=== PATIENT | male | born 1995 | race Caucasian/White ===

== ENCOUNTER 2020-10-16 11:25 | Observation (INO) ==
--- OUTSIDE RECORDS SUMMARY | 2020-10-16 11:27 | External Medical Summary | Continuity of Care Document ---
:1995 Author Name Pati Ferrell Address Unavailable Unavailable , Care Team Providers Name Role Phone Jericho MOTT Unavailable [email or web address] Unavailable Unavailable Unavailable Unavailable Assessments Assessed Problems:Tick bite Problems Tick bite (919.4) (W57.XXXA) Erectile dysfunction (607.84) (N52.9) Abnormal weight gain (783.1) (R63.5) Allergies and Adverse Reactions No Known Drug Allergies (Allergy) Medications Doxycycline Monohydrate 100 MG Oral Capsule; TAKE 2 TA BLET ONCE DAILY PANTERA Echavarria Tia Start: 27-Sep-2016 Quantity: 2 Refills: 0 Procedures Procedures not documented Immunizations Hepatitis B On: 1995 Hepatitis B On: 1995 IPV On: 1997 HIB On: 1997 DTaP On: 1997 IPV On: 1997 HIB On: 1997 DTaP On: 1997 Hepatitis B On: 1997 DTaP On: 1997 IPV On: 09-Jan-1998 HIB On: 09-Jan-1998 Varicella On: 09-Jan-1998 MMR On: 09-Jan-1998 DTaP On: 07-Jul-1998 IPV On: 20-Jan-2002 0:00 DTaP On: 20-Jan-2002 0:00 MMR On: 20-Jan-2002 0:00 HIB On: 08-Jul-2007 Tdap On: 15-Jan-2008 Meningo (Menactra) On: 07-Mar-2009 Menactra Intramuscular Injectable On: 04-Feb-2014 16:02 Lot #: [id number], SANOFI PASTEUR Family History Unknown Family Member Family history of Colon Cancer (V16.0) Status: Active C omments: Family History Family history of Coronary Artery Disease Status: Active Comments: Family History (V17.49) Mother No pertinent family history in first degree relatives (V49.8 9) Status: Active (Z78.9) Father No pertinent family history in first degree relatives (V49.8 9) Status: Active (Z78.9) Social History - Smoking Status Never smoked tobacco Interventions Medication ChangesDoxycycline Monohydrate 100 MG Oral Capsule - Start Plan of Treatment Planned Observations Planned Goals not documented Results No Known Results Results not documented Encounters Appointment; Cathy Echavarria PA-C 27-Sep-2016 11:30 Encounter Diagnosis: Problem not documented
--- OUTSIDE RECORDS SUMMARY | 2020-10-16 11:28 | External Medical Summary | Continuity of Care Document ---
:1995 Author Name Pati Ferrell Address Unavailable Unavailable , Care Team Providers Name Role Phone Jericho MOTT Unavailable [email or web address] Unavailable Unavailable Unavailable Unavailable Unavailable Assessments Assessed Problems:Tick bite Problems Abnormal weight gain (783.1) (R63.5) Erectile dysfunction (607.84) (N52.9) Tick bite (919.4) (W57.XXXA) Allergies and Adverse Reactions No Known Drug Allergies (Allergy) Medications Doxycycline Monohydrate 100 MG Oral Capsule; TAKE 2 TA BLET ONCE DAILY PANTERA Echavarria Tia Start: 27-Sep-2016 Quantity: 2 Refills: 0 Procedures Procedures not documented Immunizations Hepatitis B On: 1995 Hepatitis B On: 1997 IPV On: 1997 DTaP On: 1997 HIB On: 1997 IPV On: 1997 DTaP On: 1997 HIB On: 1997 Hepatitis B On: 1997 DTaP On: 1997 IPV On: 09-Jan-1998 HIB On: 09-Jan-1998 Varicella On: 09-Jan-1998 MMR On: 09-Jan-1998 DTaP On: 07-Jul-1998 IPV On: 20-Jan-2002 0:00 DTaP On: 20-Jan-2002 0:00 MMR On: 20-Jan-2002 0:00 HIB On: 08-Jul-2007 Tdap On: 15-Jan-2008 Meningo (Menactra) On: 07-Mar-2009 Menactra Intramuscular Injectable On: 04-Feb-2014 16:02 Lot #: [id number], SANOFI PASTEUR Family History Unknown Family Member [...]
[2020-10-16 12:34] LABS: Basophils # (auto) 0.01 K/uL (0-0.2); Basophils % (auto) 0.1 %; Eosinophils # (auto) 0.01 K/uL (0-0.5); Eosinophils % (auto) 0.1 %; Hematocrit (blood only) 44.8 % (42-52); Hemoglobin 16.2 g/dL (14.0-18.0); Immature Granulocytes # (auto) 0.04 K/uL (0.00-0.02); Immature Granulocytes % (auto) 0.2 %; Lymphocytes # (auto) 0.77 K/uL (1.2-3.4); Lymphocytes % (auto) 4.6 %; Mean Corpuscular Hemoglobin 30.9 pg (25-34); Mean Corpuscular Hgb Conc 36.2 g/dL (32-36); Mean Corpuscular Volume 85.5 fL (80-100); Mean Platelet Volume 10.8 fL (7.4-10.4); Monocytes # (auto) 1.09 K/uL (0.11-0.59); Monocytes % (auto) 6.4 %; Neutrophils % (auto) 88.6 %; Platelet Count 323 K/uL (130-400); RDW Standard Deviation 40.7 fL (36.4-46.3); Red Blood Count 5.24 M/uL (4.7-6.1); White Blood Count 16.92 K/uL (4.8-10.8)
[2020-10-16 12:35] LABS: iSTAT Creatinine 1.1 mg/dl (0.6-1.3); iSTAT Hemoglobin 16.3 g/dl (14.0-18.0); iSTAT Ionized Calcium 1.24 mmol/l (1.12-1.32); iSTAT Potassium 3.7 mmol/L (3.3-5.0)
[2020-10-16 12:36] LABS: Appearance Urine Clear (Clear); Bilirubin Urine Negative (Negative); Blood Urine Negative (Negative); Color Urine Yellow; Glucose Urine UA Negative (Negative); Ketones Urine 3+ (Negative); Leukocyte Esterase Urine Negative (Negative); Nitrite Urine Negative (Negative); Protein Urine Negative (Negative); Specific Gravity Urine 1.025 (1.000-1.030); Urobilinogen Urine Negative (Negative); pH Urine 6.5 (4.5-7.5)
[2020-10-16] MEDS ORDERED: OPTIRAY 320 100ml IV ONE (12:47)
--- NOTE | 2020-10-16 12:49 | Emergency Department Note ---
Impression & Plan Acute appendicitis, Abdominal pain, Leukocytosis ED Provider Note NAME: DAMIÁN ARIAS AGE: 25 SEX: M : 1995 ARRIVES VIA: Walk-In INFORMANT: Patient ED PROVIDER(S): Pito Villasenor DO CHIEF COMPLAINT: Abdominal pain HPI: Patient is a 25-year-old male who presents the ER for infraumbilical abdominal pain. Start about 12 hours ago. Associate with some nausea. Denies any dysuria urgency or frequency. Pain 6 out of 10. Worse on palpation and movement. Denies any headache or change in vision. No chest pain or shortness of breath. No dysuria urgency or frequency. No previous abdominal surgeries. No other exacerbating or remitting factors. ROS: See above HPI for pertinent positives & negatives. A total of 10 systems reviewed and were otherwise negative. PAST MEDICAL HISTORY:See Below PAST SURGICAL HISTORY:See Below FAMILY HISTORY:See Below SOCIAL HISTORY:See Below HOME MEDICATIONS:See Below ALLERGIES:See Below VITALS:See Below PHYSICAL EXAMINATION: GENERAL: Sitting up in bed, alert, well appearing, well nourished, no distress, non-toxic EYE EXAM: normal conjunctiva. OROPHARYNX: no exudate, no erythema, lips, buccal mucosa, and tongue normal and mucous membranes are moist NECK: supple, no nuchal rigidity, no adenopathy, non-tender LUNGS: Clear to auscultation. Normal chest wall mechanics HEART: no murmurs, S1 normal and S2 normal ABDOMEN: abdomen soft, tender palpation right lower quadrant, normo-active bowel sounds, no masses, no rebound or guarding. BACK: Back is symmetrical on inspection and there is no deformity, no midline te nderness, no CVA tenderness. SKIN: no rashes and no bruising UPPER EXTREMITIES: upper extremities are grossly normal. LOWER EXTREMITIES: No pitting edema. NEURO EXAM: Normal sensorium, cranial nerves II-XII grossly intact, normal speech, no gross weakness of arms, no gross weakness of legs. MEDICAL DECISION MAKING: Patient is a 25-year-old male who presents ER for abdominal pain present for the past 12 hours. Exam acutely tender in the right lower quadrant. IV was established.. Labs show leukocytosis 16,000. No significant anemia. Bilirubin LFTs were fairly unremarkable. Lipase normal. UA clean. Covid was ordered. Patient was given 2 g of cefoxitin after CT abdomen pelvis showed acute appendicitis. Patient eventually did request pain medications. He was given a dose of morphine as well as IV fluids updated bedside and discussed with Bill from general surgery for further evaluation. Triage Nursing notes reviewed. Limited review of prior medical records performed Vital Signs: reviewed and remarkable for no significant abnormalities Differential diagnosis: Differential diagnoses includes but is not limited to gastritis, peptic ulcer disease, GERD, gallbladder disease, pancreatitis, small bowel obstruction, acute coronary syndrome, pericarditis, ischemic bowel, irritable bowel disease, irritable bowel syndrome, appendicitis, diverticulitis, malignancy, hernia, urinary tract infection, torsion, perforation, trauma, infectious. ER treatment provided: See below Diagnostics interpreted by me: ECG: none Cardiac Monitoring: An order was placed for continuous cardiac monitoring. The monitor shows a rate of 70 with sinus rhythm. Laboratory studies: As stated above and show below. Imaging studies: CT abdomen pelvis shows acute appendicitis Consultation(s): CT abdomen pelvis shows acute appendicitis Procedures: none Critical Care: None Past Med/Surg History Social History Smoking Status: Never smoker Preferred Language: Tanzanian Feels Safe at Home: Yes Allergies Allergies Allergy/AdvReac Type Severity Reaction Status Date / Time No Known Allergies AdvReac Unknown Unverified 10/16/20 13:10 Home Meds Home Medications Medication Instructions Recorded Confirmed No Known Home Medications 10/16/20 10/16/20 Results & Data (ED) Vital Signs Vital Signs - 24 hr 10/16/20 11:34 Temperature 35.9 C L Temperature Source Temporal Artery Scan Pulse Rate 65 Respiratory Rate 18 Blood Pressure 137/75 Blood Pressure Mean 95 Pulse Oximetry 96 Oxygen Delivery Method Room Air Sepsis Recent Fever Within 48 Hours No Sepsis New/Unexplained Change in Mental Status N/A Sepsis Action Taken by Nursing No Action Required Laboratory Data Result diagrams: 10/16/20 12:15 10/16/20 12:15 Lab Results 10/16/20 10/16/20 10/16/20 Range/Units 12:15 12:15 12:15 WBC 16.92 H (4.8-10.8) K/uL RBC 5.24 (4.7-6.1) M/uL Hgb 16.2 (14.0-18.0) g/dL POC Hgb (14.0-18.0) g/dl Hct 44.8 (42-52) % POC Hct (42-52) % MCV 85.5 (80-100) fL MCH 30.9 (25-34) pg MCHC 36.2 H (32-36) g/dL RDW Std Deviation 40.7 (36.4-46.3) fL RDW Coeff of Lenny 13.0 (11.5-14.5) % Plt Count 323 (130-400) K/uL MPV 10.8 H (7.4-10.4) fL Immature Gran % (Auto) 0.2 % Neut % (Auto) 88.6 % Lymph % (Auto) 4.6 % [place] % (Auto) 6.4 % Eos % (Auto) 0.1 % Baso % (Auto) 0.1 % Neut # (Auto) 15.00 H (1.4-6.5) K/uL Lymph # (Auto) 0.77 L (1.2-3.4) K/uL [place] # (Auto) 1.09 H (0.11-0.59) K/uL Eos # (Auto) 0.01 (0-0.5) K/uL Baso # (Auto) 0.01 (0-0.2) K/uL Immature Gran # (Auto) 0.04 H (0.00-0.02) K/uL POC Sodium (135-144) mmol/L Sodium 138 (136-145) mmol/L POC Potassium (3.3-5.0) mmol/L Potassium 3.7 (3.5-5.1) mmol/L POC Chloride (101-112) mmol/L Chloride 105 (98-107) mmol/L Carbon Dioxide 29 (21-32) mmol/L POC Total CO2 (24-31) mmol/L Anion Gap 4.0 (3-11) POC Anion Gap (16-25) mmol/L POC BUN (7-18) mg/dl BUN 10 (7-18) mg/dl Creatinine 1.18 (0.6-1.4) mg/dl POC Creatinine (0.6-1.3) mg/dl Est Cr Clr Drug Dosing 124.7 ml/min Est GFR ( Amer) 100.2 Est GFR (Non-Af Amer) 86.5 BUN/Creatinine Ratio 8.1 L (10-20) Glucose 125 H (70-99) mg/dl POC Glucose (other) (70-99) mg/dl Calcium 9.7 (8.5-10.1) mg/dl POC Ioniz Calcium Luisa (1.12-1.32) mmol/l Total Bilirubin 1.2 H (0.2-1) mg/dl AST 19 (15-37) U/L ALT 58 (12-78) U/L Alkaline Phosphatase 88 (45-117) U/L Total Protein 8.1 (6.4-8.2) gm/dl Albumin 4.4 (3.4-5.0) gm/dl Globulin 3.7 (2.5-4.0) gm/dl Albumin/Globulin Ratio 1.2 (0.9-2) Lipase 66 L (73-393) U/L Urine Color Yellow Urine Appearance Clear (Clear) Urine pH 6.5 (4.5-7.5) Ur Specific [place] 1.025 (1.000-1.030) Urine Protein Negative (Negative) Urine Glucose (UA) Negative (Negative) Urine Ketones 3+ H (Negative) Urine Blood Negative (Negative) Urine Nitrite Negative (Negative) Urine Bilirubin Negative (Negative) Urine Urobilinogen Negative (Negative) Ur Leukocyte Esterase Negative (Negative) COVID-19 Eval Order 10/16/20 10/16/20 Range/Units 12:22 13:30 WBC (4.8-10.8) K/uL RBC (4.7-6.1) M/uL Hgb (14.0-18.0) g/dL POC Hgb 16.3 (14.0-18.0) g/dl Hct (42-52) % POC Hct 48 (42-52) % MCV (80-100) fL MCH (25-34) pg MCHC (32-36) g/dL RDW Std Deviation (36.4-46.3) fL RDW Coeff of Lenny (11.5-14.5) % Plt Count (130-400) K/uL MPV (7.4-10.4) fL Immature Gran % (Auto) % Neut % (Auto) % Lymph % (Auto) % [place] % (Auto) % Eos % (Auto) % Baso % (Auto) % Neut # (Auto) (1.4-6.5) K/uL Lymph # (Auto) (1.2-3.4) K/uL [place] # (Auto) (0.11-0.59) K/uL Eos # (Auto) (0-0.5) K/uL Baso # (Auto) (0-0.2) K/uL Immature Gran # (Auto) (0.00-0.02) K/uL POC Sodium 139 (135-144) mmol/L Sodium (136-145) mmol/L POC Potassium 3.7 (3.3-5.0) mmol/L Potassium (3.5-5.1) mmol/L POC Chloride 100 L (101-112) mmol/L Chloride (98-107) mmol/L Carbon Dioxide (21-32) mmol/L POC Total CO2 30 (24-31) mmol/L Anion Gap (3-11) POC Anion Gap 13.0 L (16-25) mmol/L POC BUN 8 (7-18) mg/dl BUN (7-18) mg/dl Creatinine (0.6-1.4) mg/dl POC Creatinine 1.1 (0.6-1.3) mg/dl Est Cr Clr Drug Dosing ml/min Est GFR ( Amer) Est GFR (Non-Af Amer) BUN/Creatinine Ratio (10-20) Glucose (70-99) mg/dl POC Glucose (other) 128 H (70-99) mg/dl Calcium (8.5-10.1) mg/dl POC Ioniz Calcium Luisa 1.24 (1.12-1.32) mmol/l Total Bilirubin (0.2-1) mg/dl AST (15-37) U/L ALT (12-78) U/L Alkaline Phosphatase (45-117) U/L Total Protein (6.4-8.2) gm/dl Albumin (3.4-5.0) gm/dl Globulin (2.5-4.0) gm/dl Albumin/Globulin Ratio (0.9-2) Lipase (73-393) U/L Urine Color Urine Appearance (Clear) Urine pH (4.5-7.5) Ur Specific [place] (1.000-1.030) Urine Protein (Negative) Urine Glucose (UA) (Negative) Urine Ketones (Negative) Urine Blood (Negative) Urine Nitrite (Negative) Urine Bilirubin (Negative) Urine Urobilinogen (Negative) Ur Leukocyte Esterase (Negative) COVID-19 Eval Order CovFluRsv at [facility] Administered Medications Discontinued Medications Ioversol (Ioversol 100ml) 94 ml IV ONCE ONE Stop: 10/16/20 12:48 Last Admin: 10/16/20 12:48 Dose: 94 ml Documented by: [id number] Discharge Plan Visit Data Chief Complaint: Abdominal Pain Stated Complaint: ABD PAIN ED Provider: Pito Villasenor Discharge Problem: Acute appendicitis, Abdominal pain, Leukocytosis Forms Stand Alone Forms: [employer] Prescriptions Prescriptions: No Action No Known Home Medications RF: 0 Discharge Problem: Acute appendicitis Qualifiers: Acute appendicitis type: unspecified acute appendicitis type Qualified Code(s): K35.80 - Unspecified acute appendicitis Abdominal pain Qualifiers: Abdominal location: unspecified location Qualified Code(s): R10.9 - Unspecified abdominal pain Leukocytosis Qualifiers: Leukocytosis type: unspecified Qualified Code(s): D72.829 - Elevated white blood cell count, unspecified
[2020-10-16 12:56] LABS: Albumin Level 4.4 gm/dl (3.4-5.0); BUN Creatinine Ratio 8.1 (10-20); Calcium 9.7 mg/dl (8.5-10.1); Creatinine Clr Calc Pharmacy 124.7 ml/min; Est GFR (African American) 100.2; Est GFR (Non-African American) 86.5; Potassium 3.7 mmol/L (3.5-5.1)
[2020-10-16 12:58] LABS: Albumin Globulin Ratio 1.2 (0.9-2); Bilirubin,Total 1.2 mg/dl (0.2-1); Globulin 3.7 gm/dl (2.5-4.0); Total Protein 8.1 gm/dl (6.4-8.2)
--- NOTE | 2020-10-16 13:05 | CT Scan Report ---
CT OF THE ABDOMEN AND PELVIS WITH CONTRAST CLINICAL HISTORY: Abdominal pain. COMPARISON STUDY: None. TECHNIQUE: Following IV administration of 94 mL of Optiray-320, axial images of the abdomen and pelvi s were obtained from the lung bases to the proximal femurs. Images were reviewed in the axial, sagitt al, and coronal planes. IV contrast was administered without complication. Automated exposure contro l was utilized for the study. A dose lowering technique was utilized adhering to the principles of A BONG. CT DOSE: 1251.93 mGy.cm FINDINGS: Lung bases are unremarkable. No pneumatosis, free air or portal venous gas is present. The liver, spleen, adrenal glands, kidneys and pancreas are normal. The spleen is at the upper limits of normal for size. There is no biliary or pancreatic ductal dilatation. There is no hydronephrosis. The re is a 7 mm appendicolith within the base of the appendix. The appendix is fluid-filled and markedly dilated, measuring 2.3 cm in caliber. There are a few additional appendicoliths within the appendix. There is moderate periappendiceal fluid with stranding. Trace fluid within the right paracolic gutte r is noted as well as a small amount of fluid within the pelvis. There is no free air or abscess. The re is no lymphadenopathy. Major vasculature is patent. IMPRESSION: Findings consistent with acute appendicitis. Markedly dilated, fluid-filled appendix wit h moderate periappendiceal fluid extending into the pelvis and right paracolic gutter. No free air or abscess. ACT 112: Negative or not required by law. Electronically signed by: Yuriy Mccormack M.D. 10/16/2020 1:04 PM
[2020-10-16] MEDS ORDERED: cefOXitin 2,000 MG/60 ML BAG IV STA (13:13)
[2020-10-16] MEDS ORDERED: MoRPHine SULFATE 4 MG/ML 1 ML CARP\\VIAL IV STA (13:50)
[2020-10-16] MEDS ORDERED: PROPOFOL IV EMULSION 10 MG/ML 20 ML VIAL IV ONE ×2 (14:35→16:44)
[2020-10-16] MEDS ORDERED: ONDANSETRON INJ 2 MG/ML 2 ML VIAL ONE (14:35)
[2020-10-16] MEDS ORDERED: DEXAMETHASONE SOD INJ 4 MG/ML VIAL ONE (14:35)
[2020-10-16] MEDS ORDERED: LIDOCAINE HCL 2% 2 ML VIAL/AMP(20MG/ML) INFIL ONE (14:35)
[2020-10-16] MEDS ORDERED: SUCCINYLCHOLINE 100MG/5ML SYR IV ONE (14:35)
[2020-10-16] MEDS ORDERED: LARYING-O-JET KIT (LTA) ONE (14:35)
[2020-10-16] MEDS ORDERED: HYDROmorphone INJ 2 MG/ML SYR/VIAL ONE (14:36)
[2020-10-16] MEDS ORDERED: MIDAZOLAM HCL 1 MG/ML 2ML VIAL ONE (14:36)
[2020-10-16] MEDS ORDERED: NEOSTIGMINE METHYLSULFATE 5 MG/5 ML SYR ONE (14:38)
[2020-10-16] MEDS ORDERED: GLYCOPYRROLATE 0.2 MG/ML VIAL ONE ×2 (14:38→16:44)
[2020-10-16] MEDS ORDERED: ROCURONIUM BROMIDE 10 MG/ML 5 ML VIAL IV ONE (14:38)
[2020-10-16] MEDS ORDERED: BUPIVACAINE/EPINEPHRINE 0.5% MPF 1:200,000 30 ML VIAL ONE (14:45)
--- NOTE | 2020-10-16 14:45 | History & Physical Report ---
Date of Service October 16, 2020 Assessment & Plan (1) Acute appendicitis: Admission and Anticipated Discharge Date Admission Date: WBC 16,000. CT with appendicolith & dilation 2.3 cm Will plan for laparoscopic appendectomy this afternoon. Seen in ED with Dr. Weinberg. History of Present Illness Primary Care Provider: NO PCP 25 y/o male with pain lower abdomen began around 10 PM last night. Localized to RLQ this morning, came to ED. Nothing to eat since last night. Allergies Allergy/AdvReac Type Severity Reaction Status Date / Time No Known Allergies AdvReac Unknown Unverified 10/16/20 13:10 Home Medications Medication Instructions Recorded Confirmed Type No Known Home Medications 10/16/20 10/16/20 History Past Med/Surg History Social History Smoking Status: Never smoker Preferred Language: Lao Feels Safe at Home: Yes Review of Systems Constitutional: no fever and no chills Respiratory: no cough and no dyspnea Gastrointestinal: + abdominal pain and + nausea; no vomiting Physical Exam Constitutional: WD/WN, vitals as above Respiratory: normal respiratory effort, lungs clear to auscultation Cardiovascular: RRR, no murmur, no edema Gastrointestinal (Abdomen): Inspection/Auscultation: abdomen not distended Percussion/Palpation: + abdomen tender (RLQ) and abdomen soft Skin: no rashes, warm and dry Results & Data Results & Data ([facility]) Vital Signs (Past 12 Hours) Vital Signs Temp Pulse Resp BP Pulse Ox 10/16/20 11:34 35.9 C L 65 18 137/75 96 Supervising Physician Co-Signing Physician Notes As per Marshal dominguez Less than 24-hour history of periumbilical pain migrating to the increase in intensity diagnosed by CAT scan appendicitis with appendicolith 8 mm white count elevation. Patient has exquisite tenderness and rebound in the right lower quadrant Procedure laparoscopic appendectomy possible open risk and complication of procedure were explained to the patient including bleeding infection and he like to proceed accordingly All questions were answered Discussed other options of therapy namely antibiotics PG Care Time/CCT Total # of Minutes Spent Total Time Spent with Patient: Total time spent is greater than 50% in coordination of care (as documented) at patient's floor/unit and/or counseling patient: Coding Level of Care Code None Diagnoses Acute appendicitis K35.80 Acute appendicitis type: unspecified acute appendicitis type (1) Acute appendicitis Acute appendicitis type: unspecified acute appendicitis type Qualified Code(s): K35.80 - Unspecified acute appendicitis
[2020-10-16] MEDS ORDERED: LIDOCAINE/EPINEPHRINE 1% 20 ML VIAL ONE (14:47)
[2020-10-16 15:00] LABS: Influenza A virus by PCR Negative (Neg); Influenza B virus by PCR Negative (Neg); RSV by PCR Negative (Neg); SARS CoV2 RNA(COVID-19) InHosp NEGATIVE (Negative)
[2020-10-16] MEDS ORDERED: ONDANSETRON INJ 2 MG/ML 2 ML VIAL IV PRN ×2 (15:42→18:28)
[2020-10-16] MEDS ORDERED: ePHEDrine sulfate 50 MG/ML AMP IV PRN (15:42)
[2020-10-16] MEDS ORDERED: fentaNYL citrate 100 MCG/2 ML VIAL IV PRN (15:42)
[2020-10-16] MEDS ORDERED: ATROPINE SULFATE 0.1 MG/ML 10ML SYR IV PRN (15:42)
[2020-10-16] MEDS ORDERED: HYDROmorphone INJ 2 MG/ML SYR/VIAL IV PRN (15:42)
[2020-10-16] MEDS ORDERED: PROMETHAZINE HCL 12.5 MG in SODIUM CHLORIDE 0.9% 50 ML IV PRN (15:42)
--- NOTE | 2020-10-16 15:42 | Anesthesiology Consultation ---
Date of Service October 16, 2020 Assessment & Plan ASA ASA2 Proposed Anesthesia Anesthesia Type: General Risk / Benefits Reviewed With: PT / POA / Parent / Guardian, Accepts Plan and Informed Consent Obtained History Surgery Operation Date: 10/16/20 07:00 Proposed Procedures p Laparoscopic Appendectomy - Michel Weinberg MD, FACS Height/Weight Height: 5 ft 10 in Weight: 116.9 kg Allergies Allergy/AdvReac Type Severity Reaction Status Date / Time No Known Allergies AdvReac Unknown Unverified 10/16/20 13:10 Medications Home Medications Medication Instructions Recorded Confirmed Last Taken No Known Home Medications 10/16/20 10/16/20 Unknown NPO Date Last Intake of Fluids: 10/16/20 Time Last Intake of Fluids: 10:30 Date Last Intake of Solids: 10/15/20 Time Last Intake of Solids: 18:30 Exercise / Class Metabolic Activity II 4-5 Yardwork/Stairs/Walk up hill Past Anesthesia History No Hx of Anesthesia Complications and No Family Hx of Anesthesia Complications History of PONV No Hx of PONV and No Hx of Motion Sickness Social History Smoking Status: Never smoker Review of Systems denies fever/cough/ colds/ chest pain/ SOB/ GUANAKITO denies GUANAKITO Physical Exam Vital Signs Last Vital Signs Temp 37.3 C 10/16/20 15:33 Pulse 64 10/16/20 15:33 Resp 18 10/16/20 15:33 BP 142/79 H 10/16/20 15:33 Pulse Ox 97 10/16/20 15:33 ENMT Mouth: no TMJ abnormality and no dentition abnormality Thyromental Distance: > or= 3.5 Finger Breadths Mallampati Class: II Neck neck extension not limited Respiratory normal respiratory effort; no respiratory distress Auscultation: lungs clear to auscultation bilaterally Cardiovascular Rate/Rhythm: regular rate and regular rhythm Neurologic moves all extremities Psychiatric Orientation: alert and oriented x 3 Testing Laboratory Results 10/16/20 12:15 10/16/20 12:15 Urine Color Yellow 10/16/20 12:15 Urine Appearance Clear (Clear) 10/16/20 12:15 Urine pH 6.5 (4.5-7.5) 10/16/20 12:15 Ur Specific [place] 1.025 (1.000-1.030) 10/16/20 12:15 Urine Protein Negative (Negative) 10/16/20 12:15 Urine Glucose (UA) Negative (Negative) 10/16/20 12:15 Urine Ketones 3+ (Negative) H 10/16/20 12:15 Urine Nitrite Negative (Negative) 10/16/20 12:15 Ur Leukocyte Esterase Negative (Negative) 10/16/20 12:15 10/16/20 12:22 POC Glucose (other) 128 H
--- NOTE | 2020-10-16 16:50 | Post Operative Brief Note ---
PG Immediate Post Op with CF Date of Surgery October 16, 2020 Pre & Post Diagnosis Operation Date: 10/16/20 07:00 Pre-Op Diagnosis: Appendicitis Post-Op Diagnosis: Appendicitis I identified the patient and participated in the time-out.: Yes Procedure Operation Date: 10/16/20 07:00 Actual Procedures p Laparoscopic Appendectomy - Michel Weinberg MD, FACS Surgeon Michel Weinberg MD, FACS Underground Truck Operator b umang dominguez Estimated Blood Loss 10 Findings Consistent with Post-Op Diagnosis Specimens Specimen Description: Culture#1 peritoneal fluid for aerobic, anaerobic, gram stain A. Appendix Drains Diego Drain
--- NOTE | 2020-10-16 17:21 | Operative Report ---
PG Post Operative Report Pre & Post Diagnosis Operation Date: 10/16/20 07:00 Pre-Op Diagnosis: Appendicitis Post-Op Diagnosis: Appendicitis I identified the patient and participated in the time-out.: Yes Procedure Operation Date: 10/16/20 07:00 Actual Procedures p Laparoscopic Appendectomy - Michel Weinberg MD, FACS Patient was brought into the operating theater supine position systemic antibiotics on board General endotracheal anesthesia timeout was had patient was identified and a small incision supraumbilically sufficient to place a Veress needle followed by CO2 followed by 5 mm trocar point of interest no injury identified at some intimal insufflation this point would visualize the appendix and appeared to be gangrenous in nature patient also had some fluid done in the gutter this point a 5 mm right upper quadrant port was placed with preemptive local analgesic and a grasper was able to elevate the appendix and the cecum the appendix was markedly necrotic and fluid was in the right gutter purulent in nature this point I converted the 5 mm periumbilical port 11 mm on direct visualization and then a 5 mm port was placed alf between the symphysis pubis and umbilical area for the camera the patient had quite a prominent abdomen and this allowed good exposure was placed in the left lateral position touch grasper was used to elevate the appendix at its base and just by touching it there was very friable some fluid extravasated from it we created a window between the mesoappendix and the cecum and use a blue load come across and freed the appendix from the cecum the mesentery to the appendix was then taken down with 2 applications of the purple ANAY the appendix was placed in an Endopouch and taken out through the umbilical port in pieces the Endopouch was removed maintain stability around the trocar site placement towels then we repositioned the 11 mm trocar suctioned out the right gutter pelvic area by placing the patient Trendelenburg irrigated the abdomen we checked the skin staple line appeared free of any bleeding except one small area that we touched with the cautery at 25 I elected to drain the area with a Diego drain that came into the suprapubic area and come out the right upper quadrant which places on the pelvis and on the right gutter then irrigated the abdomen again right upper quadrant tr ocar then removed with 19 Diego drain the umbilical trocar was removed and we closed the fascial area with interrupted 0 Vicryl x2 [id number] and interrupted patient was somewhat prominent subcutaneous tissue needed to enlarge the incision so we could expose the fascia 4-0 Monocryl Steri-Strips applied procedure was tolerated well by the patient estimated blood loss approximately 10 cc addendum Gisele SEYMOUR was present throughout the procedure and helped the retraction exposure and wound closure Summary this is gangrenous appendix probably microperforation peritoneal fluid had been aspirated and sent for cultures and sensitivity Surgeon Michel Weinberg MD, FACS Senior Medical Technologist b umang seymour Estimated Blood Loss 10 Findings Consistent with Post-Op Diagnosis Specimens appendix Description of Procedure merda I attest to the content of the Intraoperative Record and any orders documented therein. Any exceptions are noted below.
--- NOTE | 2020-10-16 18:27 | Anesthesiology Progress Note ---
Date of Service October 16, 2020 Anesthesia Post Procedure Vital Signs Vital Signs: Temp Pulse Pulse Pulse Resp BP BP 10/16/20 18:10 100 H 21 132/74 10/16/20 18:00 36.8 C 100 H 21 132/84 10/16/20 17:50 86 22 153/80 H 10/16/20 17:40 94 H 20 143/71 H 10/16/20 17:30 94 H 22 138/80 10/16/20 17:20 36.7 C 110 H 12 129/83 10/16/20 15:33 37.3 C 64 18 142/79 H 10/16/20 15:00 60 14 150/83 H 10/16/20 14:30 67 14 161/79 H 10/16/20 14:00 62 16 151/89 H 10/16/20 13:36 56 L 10 L 179/87 H 10/16/20 11:34 35.9 C L 65 18 137/75 Pulse Ox 10/16/20 18:10 96 10/16/20 18:00 93 10/16/20 17:50 96 10/16/20 17:40 97 10/16/20 17:30 97 10/16/20 17:20 95 10/16/20 15:33 97 10/16/20 15:00 97 10/16/20 14:30 96 10/16/20 14:00 96 10/16/20 13:36 97 10/16/20 11:34 96 Pain Intensity Lower Abdomen: Pain Intensity: 0 Transfer of Care Handoff Completed per policy Notes Mental Status: alert / awake / arousable and participated in evaluation Patient Amnestic to Procedure: Yes Nausea / Vomiting: adequately controlled Pain: adequately controlled Airway Patency, RR, SpO2: stable & adequate BP & HR: stable & adequate Hydration State: stable & adequate Anesthetic Complications: no major complications apparent and Pt Satisfied with anesthetic care
[2020-10-16] MEDS ORDERED: MoRPHine SULFATE 4 MG/ML 1 ML CARP\\VIAL IV PRN (18:28)
[2020-10-16] MEDS ORDERED: oxyCODONE/ACETAMINOPHEN 5mg/325mg TAB PO PRN (18:28)
[2020-10-16] MEDS: LACTATED RINGER'S 1,000 ML IV SCH (19:00)
[2020-10-16] MEDS: MoRPHine SULFATE 2 MG/ML CARP IV PRN (22:21)
[2020-10-16] MEDS: AMPICILLIN/SULBACTAM SOD 3,000 MG in 0.9 % SODIUM CHLORIDE 100 ML IV SCH (22:21)
[2020-10-17] MEDS: MoRPHine SULFATE 2 MG/ML CARP IV PRN (02:07)
[2020-10-17] MEDS: LACTATED RINGER'S 1,000 ML IV SCH ×2 (03:25→13:33)
[2020-10-17] MEDS: AMPICILLIN/SULBACTAM SOD 3,000 MG in 0.9 % SODIUM CHLORIDE 100 ML IV SCH ×2 (04:32→09:57)
[2020-10-17] MEDS: oxyCODONE/ACETAMINOPHEN 5mg/325mg TAB PO PRN ×2 (04:32→12:37)
--- NOTE | 2020-10-17 06:28 | Surgery Progress Note ---
Date of Service October 17, 2020 Assessment & Plan (1) Acute appendicitis: Will increase diet and if the patient tolerated without any problem in the pain is controlled with oral analgesics probably sent home later today on p.o. antibiotics for approximately 5 days Intraoperative findings were discussed with the patient Admission and Anticipated Discharge Date Admission Date: October 16, 2020 Subjective Some minor abdominal discomfort stated had some liquids last night without any problem Physical Exam Physical Exam: Is alert comfortable no distress The abdomen minimally guarding mostly in right upper quadrant at the drain site The drain is serosanguineous Other trocar sites are fine Results & Data ([facility]) Vital Signs (Past 12 Hours) Vital Signs Temp Pulse Resp BP Pulse Ox 10/17/20 04:37 97 H 10/17/20 03:33 37.2 C 116 H 16 114/60 95 10/17/20 01:45 102 H 10/17/20 00:51 37.1 C 110 H 16 120/75 95 10/16/20 23:30 104 H 10/16/20 22:13 105 H 10/16/20 21:20 36.9 C 120 H 16 121/67 95 10/16/20 20:24 36.4 C L 116 H 16 121/64 93 10/16/20 19:20 37.0 C 112 H 16 118/66 92 10/16/20 18:36 37.4 C 118 H 20 161/79 H 93 PG Care Time/CCT Total # of Minutes Spent Total Time Spent with Patient: Total time spent is greater than 50% in coordination of care (as documented) at patient's floor/unit and/or counseling patient: Coding Level of Care Code None Diagnoses Acute appendicitis K35.80 Acute appendicitis type: unspecified acute appendicitis type (1) Acute appendicitis Acute appendicitis type: unspecified acute appendicitis type Qualified Code(s): K35.80 - Unspecified acute appendicitis
[2020-10-17 08:06] LABS: Hemoglobin 15.3 g/dL (14.0-18.0); Immature Granulocytes # (auto) 0.03 K/uL (0.00-0.02); Immature Granulocytes % (auto) 0.2 %; Lymphocytes # (auto) 0.59 K/uL (1.2-3.4); Lymphocytes % (auto) 4.2 %; Mean Corpuscular Hemoglobin 30.8 pg (25-34); Mean Corpuscular Hgb Conc 35.6 g/dL (32-36); Mean Corpuscular Volume 86.7 fL (80-100); Mean Platelet Volume 10.3 fL (7.4-10.4); Monocytes # (auto) 1.36 K/uL (0.11-0.59); Monocytes % (auto) 9.8 %; Neutrophils # (auto) 11.94 K/uL (1.4-6.5); Neutrophils % (auto) 85.8 %; Platelet Count 276 K/uL (130-400); RDW Coefficient of Variation 13.3 % (11.5-14.5); RDW Standard Deviation 41.8 fL (36.4-46.3); Red Blood Count 4.96 M/uL (4.7-6.1); White Blood Count 13.92 K/uL (4.8-10.8)
--- NOTE | 2020-10-17 08:20 | Anesthesiology Progress Note ---
Date of Service October 17, 2020 Anesthesia Post Procedure Vital Signs Vital Signs: Temp Pulse Pulse Pulse Resp BP BP 10/17/20 07:24 36.8 C 100 H 18 121/78 10/17/20 04:37 97 H 10/17/20 03:33 37.2 C 116 H 16 114/60 10/17/20 01:45 102 H 10/17/20 00:51 37.1 C 110 H 16 120/75 10/16/20 23:30 104 H 10/16/20 22:13 105 H 10/16/20 21:20 36.9 C 120 H 16 121/67 10/16/20 20:24 36.4 C L 116 H 16 121/64 10/16/20 19:20 37.0 C 112 H 16 118/66 10/16/20 18:36 37.4 C 118 H 20 161/79 H 10/16/20 18:10 100 H 21 132/74 10/16/20 18:00 36.8 C 100 H 21 132/84 10/16/20 17:50 86 22 153/80 H 10/16/20 17:40 94 H 20 143/71 H 10/16/20 17:30 94 H 22 138/80 10/16/20 17:20 36.7 C 110 H 12 129/83 10/16/20 15:33 37.3 C 64 18 142/79 H 10/16/20 15:00 60 14 150/83 H 10/16/20 14:30 67 14 161/79 H 10/16/20 14:00 62 16 151/89 H 10/16/20 13:36 56 L 10 L 179/87 H 10/16/20 11:34 35.9 C L 65 18 137/75 Pulse Ox 10/17/20 07:24 94 10/17/20 04:37 10/17/20 03:33 95 10/17/20 01:45 10/17/20 00:51 95 10/16/20 23:30 10/16/20 22:13 10/16/20 21:20 95 10/16/20 20:24 93 10/16/20 19:20 92 10/16/20 18:36 93 10/16/20 18:10 96 10/16/20 18:00 93 10/16/20 17:50 96 10/16/20 17:40 97 10/16/20 17:30 97 10/16/20 17:20 95 10/16/20 15:33 97 10/16/20 15:00 97 10/16/20 14:30 96 10/16/20 14:00 96 10/16/20 13:36 97 10/16/20 11:34 96 Notes Mental Status: alert / awake / arousable Patient Amnestic to Procedure: Yes Nausea / Vomiting: adequately controlled Pain: adequately controlled Airway Patency, RR, SpO2: stable & adequate BP & HR: stable & adequate Hydration State: stable & adequate Anesthetic Complications: no major complications apparent and Pt Satisfied with anesthetic care
[2020-10-17 08:36] LABS: BUN Creatinine Ratio 6.3 (10-20); Calcium 9.4 mg/dl (8.5-10.1); Creatinine Clr Calc Pharmacy 116.8 ml/min; Est GFR (African American) 92.6; Est GFR (Non-African American) 79.9; Potassium 3.8 mmol/L (3.5-5.1)
--- NOTE | 2020-10-17 14:10 | Discharge Summary ---
Date of Service October 17, 2020 Admission HPI Per Admitting Provider 25 y/o male with pain lower abdomen began around 10 PM last night. Localized to RLQ this morning, came to ED. Nothing to eat since last night. Principal Diagnosis Acute appendicitis Discharge Exam Gastrointestinal (Abdomen) Inspection/Auscultation: + abdominal surgical incision (dry) and + abdominal surgical drain present (70 cc ) Percussion/Palpation: abdomen soft Discharge Data Allergies Allergy/AdvReac Type Severity Reaction Status Date / Time No Known Allergies AdvReac Unknown Unverified 10/16/20 13:10 Consultations 10/16/20 13:13 ED Decision to Admit Stat Procedures Performed Operation Date: 10/16/20 07:00 Actual Procedures p Laparoscopic Appendectomy - Michel Weinberg MD, FACS Ordered Studies 10/16/20 11:46 CT abd pelvis IV con only Stat Hospital Course (1) Acute appendicitis: 25 y/o male presented to the ER with abdominal pain localizing to RLQ. White count was 16,[address] was consistent with acute appendicitis. He was taken to the operating room for laparoscopic appendectomy and transferred to the surgical floor for observation. A whitney drain had been placed and IV antibiotics were continued overnight. In the morning his white count had improved and he was afebrile. He was able to advance diet and was stable for discharge home later in the day with the drain which will be removed in the office in a few days. Total Time Total Time Spent Total Time Spent (In Minutes): 10 Discharge Plan Discharge Items Patient Disposition: Home - Self-Care Reason For Visit: APPENDICITIS Discharge Diagnosis: appendectomy Activity: As commented below Lifting: No more than 10 pounds Bathing Comment: ok to shower Driving/Machine Use: Resume 3 days after discharge Non-emergency contact: Surgeon Call non-emergency contact if: you have any medication questions, your pain is not controlled, your temperature is above 101.5, your wound has increased redness and your wound has increased drainage Follow-up/Referrals: Michel Weinberg MD, FACS [Surgeon] - 10/20/20 10:00 am (Call the office to have the drain removed later this week) PCP,NO [Primary Care Provider] - Diet: Regular Addtl Attending Provider Instructions: Empty drain 2-3 times daily as needed remove bandage to shower with the drain, then recover after showering Leave steri-strips on the other incisions until follow-up Pending Studies at Discharge: No Stand-Alone Forms: My [facility], Opioid Pain Management, Smoking Cessation Medications and DC Order Prescriptions: New oxycodone-acetaminophen [Percocet] 5-325 mg tablet 1 - 2 tab PO Q4H PRN (Reason: pain, initial therapy, max 6 daily) Qty: 15 RF: 0 amoxicillin-pot clavulanate [Augmentin] 875-125 mg tablet 1 tab PO BID Qty: 10 RF: 0 Continued No Known Home Medications RF: 0 Discharge Orders: Discharge Order (Routine); Ordered 10/17/20 Ordered By: Johnie Otoole Admission Data Admit Date/Time: 10/16/20 17:16 Attending Provider: Michel Weinberg Admit Provider: Michel Weinberg Primary Care Provider: PCP,NO Other Providers: Michel Weinberg Other Interventions: Discharge Summary Assessment (RN) Last Done: 10/17/20 13:16 Coding Level of Care Code D/C Day Management <30 mins Diagnoses Acute appendicitis K35.80 Acute appendicitis type: unspecified acute appendicitis type
== END 2020-10-17 15:38 | disposition home or self-care (01) ==
LOC: ED 11:25 → 3W 11:25

== ENCOUNTER 2020-10-20 13:14 | Inpatient (IN) ==
[2020-10-20] MEDS ORDERED: SODIUM CHLORIDE 0.9% 1000ML 1,000 ML IV ONE (13:54)
[2020-10-20] MEDS ORDERED: ONDANSETRON INJ 2 MG/ML 2 ML VIAL IV STA (14:07)
--- NOTE | 2020-10-20 14:32 | History & Physical Report ---
Date of Service October 20, 2020 Assessment & Plan (1) S/P laparoscopic appendectomy: This is a 25y M with no significant PMH who underwent a laparoscopic appendectomy on 10/16/[address] Weinberg who presents to the [facility] ED on 10/20/20 with complaints of nausea/vomiting. Intraop findings consistent with a gangrenous appendix with concerns of microperforation. He was discharged to home in stable condition on POD#1 with a course of po abx. Since returning home patient has been slow to progress with low appetite, sweats/chills, and nausea/vomiting. He was seen in clinic today and FLOR drain was removed without event and patient reports feeling some overall improvement in symptoms. Since returning home from clinic today he subsequently developed further nausea/vomiting prompting him to come into the ER for further evaluation. Patient was seen and examined, appears pale in the face. His abdomen is soft, mildly distended, with mild ttp in the RLQ. FLOR drain dressing c/d/i. Patient is currently afebrile and tachycardic to the 110's. We will proceed with ordering blood work to check WBC and a CT a/p to rule out abscess or any other intra- abdominal findings that would be contributing to patient's symptoms. A 1L bolus will be given in the ED. We will admit patient to the hospital based on symptoms and prescribed further treatments such as IV abx based on blood work and imaging findings. Continue supportive care for now. Plan of care was discussed with Dr. Weinberg. History of Present Illness Primary Care Provider: NO PCP This is a 25y M with no significant PMH who underwent a laparoscopic appendectomy on 10/16/[address] Weinberg who presents to the [facility] ED on 10/20/20 with complaints of nausea/vomiting. Intraop findings consistent with a gangrenous appendix with concerns of microperforation. Patient was discharged on POD#1 in stable condition with a FLOR drain in place and was prescribed a 5 day course of po abx. Patient reports since going home he has not had the best a ppetite and had an episode of nausea and vomiting on 10/18. He thinks it was related to the narcotic and has been on Tylenol since. Apparently he has also been dealing with sweats and chills and overall has not been feeling well. Today he was to follow up in clinic where he reported feeling mild improvement in his symptoms. His FLOR drain was removed without event. Unfortunately when patient returned home he drank a chocolate protein shake and subsequently vomited. He called the office and was instructed to come into the ER for further evaluation. In the ER patient noted to be tachycardic to the 110's. He did vomit while here. He denies any true fevers at home. He states he is passing small BM's, but not passing much gas. Allergies Allergy/AdvReac Type Severity Reaction Status Date / Time No Known Allergies AdvReac Unknown Unverified 10/20/20 10:14 Home Medications Medication Instructions Recorded Confirmed Type amoxicillin-pot clavulanate 1 tab PO BID #10 tab 10/17/20 10/20/20 Rx [Augmentin] ondansetron HCl 4 mg tablet 4 mg PO Q6H PRN #3 tab 10/19/20 10/19/20 Rx Past Med/Surg History Surgical History History of laparoscopic appendectomy (10/16/20) Laparoscopic Appendectomy Dr. Weinberg 10/16/2020 Social History Smoking Status: Never smoker Hx Substance Use: No Preferred Language: [place] Communication Ability: Effective Adult And Pediatric Neurologist Required: No Beliefs That Will Affect Care: None Current Living Situation: Alone Feels Safe at Home: Yes Assistive Devices: None Review of Systems Constitutional: + chills and + sweats; no fever decreased appetite Respiratory: no dyspnea Cardiovascular: no chest pain Gastrointestinal: + abdominal pain (mild tenderness in the RLQ), + bloating, + nausea, + vomiting and + constipation Physical Exam Physical Exam: awake/alert Constitutional: well developed, well nourished and + ill appearing Respiratory: normal respiratory effort; no respiratory distress Gastrointestinal (Abdomen): Inspection/Auscultation: + abdomen distended (mild) and + abdominal surgical incision (c/d/i, some ecchymosis alba- incisionally ) Percussion/Palpation: + abdomen tender (mild ttp in the RLQ) and abdomen soft Results & Data Results & Data ([facility]) Vital Signs (Past 12 Hours) Vital Signs Temp Pulse Pulse Resp BP BP Pulse Ox 10/20/20 14:14 80 18 147/96 H 97 10/20/20 13:21 36.3 C L 119 H 18 132/83 96 PG Care Time/CCT Total # of Minutes Spent Total Time Spent with Patient: Total time spent is greater than 50% in coordination of care (as documented) at patient's floor/unit and/or counseling patient: Coding Level of Care Code None Diagnoses S/P laparoscopic appendectomy Z90.49
--- NOTE | 2020-10-20 14:39 | Emergency Department Note ---
History of Present Illness General Chief complaint: Nausea Stated complaint: APPENDECTOMY ON FRIDAY/NOT FEELING WELL Time Seen by Provider: 10/20/20 13:45 History of Present Illness Maximum Pain Intensity: 1 This patient is a 25-year-old male that presents ambulatory to the emergency department from his surgeon's office for evaluation of nausea and vomiting that has gotten progressively worse over the last several days. The patient had an appendectomy on October 16. He had a drain placed. He was seen in the office today where the drain was pulled. He went home and has not felt well since. There has been no fever. His bowel movements have been loose. He did have a small bowel movement this morning. He has not taken anything for pain. He does have mild abdominal pain in the right lower quadrant that is worse with movement. Home Medications Medication Instructions Recorded Confirmed Type amoxicillin-pot clavulanate 1 tab PO BID #10 tab 10/17/20 10/20/20 Rx [Augmentin] ondansetron HCl 4 mg tablet 4 mg PO Q6H PRN #3 tab 10/19/20 10/19/20 Rx Allergies Allergy/AdvReac Type Severity Reaction Status Date / Time No Known Allergies AdvReac Unknown Unverified 10/20/20 14:55 Past Med/Surg History Surgical History History of laparoscopic appendectomy (10/16/20) Laparoscopic Appendectomy Dr. Weinberg 10/16/2020 Social History Smoking Status: Never smoker Do You Dip or Chew Tobacco: No; Hx Alcohol Use: Yes Alcohol type: beer, wine and hard liquor Hx Substance Use: No Preferred Language: Tamazight Communication Ability: Effective Hvac Operations Technician Required: No Beliefs That Will Affect Care: None Current Living Situation: Alone Feels Safe at Home: Yes Assistive Devices: None Review of Systems A total of 10 systems reviewed and were otherwise negative Physical Exam Vital Signs Vital Signs - 24 hr 10/20/20 13:21 10/20/20 14:14 10/20/20 15:00 Temperature 36.3 C L Temperature Source Temporal Artery Scan Pulse Rate 119 H Pulse Rate [Left Finger] 80 97 H Pulse Rhythm Regular Pulse Rhythm [Left Finger] Regular Pulse Strength Normal Pulse Strength [Left Finger] Normal Respiratory Rate 18 18 20 Respiratory Effort / Characteristics Non-Labored Spontaneous Non-Labored Spontaneous Non-Labored Spontaneous Respiratory Depth Normal Normal Respiratory Pattern Regular Regular Blood Pressure 132/83 Blood Pressure [Left Arm] 147/96 H 130/77 Blood Pressure Mean 99 Blood Pressure Mean [Left Arm] 113 94 Blood Pressure Position Sitting Pulse Oximetry 96 97 94 Oxygen Delivery Method Room Air Room Air Room Air Sepsis Recent Fever Within 48 Hours No Sepsis New/Unexplained Change in Mental Status No Sepsis Action Taken by Nursing No Action Required 10/20/20 16:45 10/20/20 18:45 10/20/20 20:45 Temperature Temperature Source Pulse Rate Pulse Rate [Left Finger] 95 H 97 H 95 H Pulse Rhythm Pulse Rhythm [Left Finger] Regular Regular Regular Pulse Strength Pulse Strength [Left Finger] Normal Normal Normal Respiratory Rate 20 20 18 Respiratory Effort / Characteristics Non-Labored Spontaneous Non-Labored Spontaneous Non-Labored Spontaneous Respiratory Depth Normal Normal Normal Respiratory Pattern Regular Regular Regular Blood Pressure Blood Pressure [Left Arm] 155/90 H 145/85 H 151/96 H Blood Pressure Mean Blood Pressure Mean [Left Arm] 111 105 114 Blood Pressure Position Pulse Oximetry 93 96 95 Oxygen Delivery Method Room Air Room Air Room Air Sepsis Recent Fever Within 48 Hours Sepsis New/Unexplained Change in Mental Status Sepsis Action Taken by Nursing 10/20/20 21:13 Temperature Temperature Source Pulse Rate 95 H Pulse Rate [Left Finger] Pulse Rhythm Pulse Rhythm [Left Finger] Pulse Strength Pulse Strength [Left Finger] Respiratory Rate 18 Respiratory Effort / Characteristics Respiratory Depth Respiratory Pattern Blood Pressure 151/96 H Blood Pressure [Left Arm] Blood Pressure Mean Blood Pressure Mean [Left Arm] Blood Pressure Position Pulse Oximetry 95 Oxygen Delivery Method Room Air Sepsis Recent Fever Within 48 Hours Sepsis New/Unexplained Change in Mental Status Sepsis Action Taken by Nursing Constitutional WD/WN, vitals as above Pale in appearance. Eyes EOM intact bilaterally ENMT external ear and nose normal, oropharynx normal Neck trachea midline Respiratory normal respiratory effort, lungs clear to auscultation Cardiovascular RRR, no murmur, no edema Musculoskeletal Well-healing incisions noted to the abdomen. Mild tenderness in the right lower quadrant. Bowel sounds present in all 4 quadrants. Skin no rashes, warm and dry Neurologic Alert and oriented x3. No focal motor deficits. Psychiatric Acting appropriately Course Course Patient was seen and examined Vital signs including blood pressure were reviewed medications list was verified with patient Labs were obtained, and a saline lock was established The patient was medicated and hydrated. Upon reevaluation, the patient was feeling better. We discussed his results. He and his father voiced understanding. The case was discussed with surgery. They personally evaluated the patient. He will be admitted for further care. Consultations Consultation #1: General surgery Administered Medications Discontinued Medications Sodium Chloride (Nss 1000ml) 1,000 mls @ 999 mls/hr IV .Q1H1M ONE Stop: 10/20/20 14:54 Last Infusion: 10/20/20 15:17 Dose: 0 mls/hr Documented by: [id number] Admin: 10/20/20 14:14 Dose: 999 mls/hr Documented by: [id number] Piperacillin Sod/Tazobactam Sod (Zosyn) 4.5 gm in 120 mls @ 240 mls/hr IV NOW ONE Stop: 10/20/20 15:19 Last Infusion: 10/20/20 17:31 Dose: 0 mls/hr Documented by: [id number] Admin: 10/20/20 16:45 Dose: 240 mls/hr Documented by: [id number] Ioversol (Ioversol 100ml) 91 ml IV ONCE ONE Stop: 10/20/20 17:16 Last Admin: 10/20/20 17:16 Dose: 91 ml Documented by: [id number] Ondansetron HCl (Ondansetron Inj 2 Mg/Ml 2 Ml Vial) 4 mg IV NOW STA Stop: 10/20/20 14:08 Last Admin: 10/20/20 14:14 Dose: 4 mg Documented by: [id number] Medical Decision Making Laboratory Data Result diagrams: 10/20/20 14:17 10/20/20 14:17 Lab Results 10/20/20 10/20/20 10/20/20 Range/Units 14:17 14:17 14:17 WBC 16.28 H (4.8-10.8) K/uL RBC 5.15 (4.7-6.1) M/uL Hgb 15.8 (14.0-18.0) g/dL Hct 44.6 (42-52) % MCV 86.6 (80-100) fL MCH 30.7 (25-34) pg MCHC 35.4 (32-36) g/dL RDW Std Deviation 41.1 (36.4-46.3) fL RDW Coeff of Lenny 12.8 (11.5-14.5) % Plt Count 371 (130-400) K/uL MPV 9.8 (7.4-10.4) fL Immature Gran % (Auto) 1.2 % Neut % (Auto) 84.7 % Lymph % (Auto) 4.8 % [place] % (Auto) 8.5 % Eos % (Auto) 0.6 % Baso % (Auto) 0.2 % Neut # (Auto) 13.78 H (1.4-6.5) K/uL Lymph # (Auto) 0.78 L (1.2-3.4) K/uL [place] # (Auto) 1.39 H (0.11-0.59) K/uL Eos # (Auto) 0.10 (0-0.5) K/uL Baso # (Auto) 0.03 (0-0.2) K/uL Immature Gran # (Auto) 0.20 H (0.00-0.02) K/uL PT 10.9 (9.0-12.0) Seconds INR 1.1 (0.9-1.1) Sodium 135 L (136-145) mmol/L Potassium 3.4 L (3.5-5.1) mmol/L Chloride 98 (98-107) mmol/L Carbon Dioxide 27 (21-32) mmol/L Anion Gap 10.0 (3-11) BUN 12 (7-18) mg/dl Creatinine 1.01 (0.6-1.4) mg/dl Est Cr Clr Drug Dosing 143.6 ml/min Est GFR ( Amer) 120.9 Est GFR (Non-Af Amer) 104.4 BUN/Creatinine Ratio 11.7 (10-20) Glucose 109 H (70-99) mg/dl Calcium 9.0 (8.5-10.1) mg/dl Total Bilirubin 1.0 (0.2-1) mg/dl AST 24 (15-37) U/L ALT 39 (12-78) U/L Alkaline Phosphatase 89 (45-117) U/L Total Protein 7.4 (6.4-8.2) gm/dl Albumin 2.6 L (3.4-5.0) gm/dl Globulin 4.8 H (2.5-4.0) gm/dl Albumin/Globulin Ratio 0.5 L (0.9-2) COVID-19 Eval Order SARS-CoV-2 (PCR) (Negative) Influenza Type A (PCR) (Neg) Influenza Type B (PCR) (Neg) RSV (RT-PCR) (Neg) 10/20/20 10/20/20 Range/Units 17:54 17:54 WBC (4.8-10.8) K/uL RBC (4.7-6.1) M/uL Hgb (14.0-18.0) g/dL Hct (42-52) % MCV (80-100) fL MCH (25-34) pg MCHC (32-36) g/dL RDW Std Deviation (36.4-46.3) fL RDW Coeff of Lenny (11.5-14.5) % Plt Count (130-400) K/uL MPV (7.4-10.4) fL Immature Gran % (Auto) % Neut % (Auto) % Lymph % (Auto) % [place] % (Auto) % Eos % (Auto) % Baso % (Auto) % Neut # (Auto) (1.4-6.5) K/uL Lymph # (Auto) (1.2-3.4) K/uL [place] # (Auto) (0.11-0.59) K/uL Eos # (Auto) (0-0.5) K/uL Baso # (Auto) (0-0.2) K/uL Immature Gran # (Auto) (0.00-0.02) K/uL PT (9.0-12.0) Seconds INR (0.9-1.1) Sodium (136-145) mmol/L Potassium (3.5-5.1) mmol/L Chloride (98-107) mmol/L Carbon Dioxide (21-32) mmol/L Anion Gap (3-11) BUN (7-18) mg/dl Creatinine (0.6-1.4) mg/dl Est Cr Clr Drug Dosing ml/min Est GFR ( Amer) Est GFR (Non-Af Amer) BUN/Creatinine Ratio (10-20) Glucose (70-99) mg/dl Calcium (8.5-10.1) mg/dl Total Bilirubin (0.2-1) mg/dl AST (15-37) U/L ALT (12-78) U/L Alkaline Phosphatase (45-117) U/L Total Protein (6.4-8.2) gm/dl Albumin (3.4-5.0) gm/dl Globulin (2.5-4.0) gm/dl Albumin/Globulin Ratio (0.9-2) COVID-19 Eval Order CovFluRsv at [facility] SARS-CoV-2 (PCR) NEGATIVE (Negative) Influenza Type A (PCR) Negative (Neg) Influenza Type B (PCR) Negative (Neg) RSV (RT-PCR) Negative (Neg) Imaging Data Attestation: I personally reviewed and interpreted this imaging study as follows: Radiologist's Impression: Abdomen/Pelvis CT 10/20/20 13:54 CT SCAN OF THE ABDOMEN AND PELVIS WITH IV CONTRAST CLINICAL HISTORY: Nausea and vomiting several days status post appendectomy. COMPARISON STUDY: Abdominal CT dated 10/16/2020. TECHNIQUE: Following the IV administration of 94 cc of Optiray 320, CT scan of the abdomen and pelvis is performed from the lung bases to the proximal femora. Images are reviewed in the axial, sagittal, and coronal planes. IV contrast was administered without complication. Oral contrast was utilized. A dose lowering technique was utilized adhering to the principles of ALARA. CT DOSE: 1418.48 mGy.cm FINDINGS: Lung bases: The heart is normal in size and without pericardial effusion. There are trace pleural effusions with bibasilar atelectasis. Liver: The contrast-enhanced liver is normal in size, contour, and attenuation. There is no intrahepatic biliary ductal dilatation. The hepatic veins and portal veins are patent. Gallbladder: Unremarkable. Spleen: Normal in size and attenuation. Pancreas: Unremarkable. Adrenal glands: Unremarkable. Kidneys: The contrast enhanced kidneys are normal in size and without hydronephrosis. The kidneys enhance symmetrically. A retroaortic left renal vein is incidentally noted. Abdominal vasculature: The abdominal aorta is normal in course and caliber. Bowel: The proximal small bowel loops are distended and fluid-filled measuring up to 4.7 cm diameter. This gradually transitions to decompressed distal small bowel. A discrete transition point is not identified. Mildly thick walled bowel loops are seen in the right lower quadrant, likely related to recent appendic itis/regional inflammation. The appendix is surgically absent. Peritoneum: There is trace free fluid in the pelvis. No intraperitoneal free air is identified. There is a multiloculated developing fluid collection identified in the right lower quadrant/pelvis seen on images #348 and #397. The more superior loculation contains intraluminal gas and measures 3.0 x 4.7 x 2.7 cm, and the more inferior loculation measures 5.4 x 4.6 x 3.4 cm. A calcified appendicolith is suggested within the superior loculation on image #357. A separate small fluid collection the left central pelvis on image #374 measures 3.8 x 1.9 x 2.8 cm. There is a small fat-containing umbilical hernia. Periumbilical soft tissue induration with small foci of subcutaneous cutaneous gas are likely related to recent surgery. Lymphadenopathy: None. Pelvic viscera: The bladder, prostate, and seminal vesicles are normal as visualized. Skeletal structures: No lytic or blastic lesions are seen. IMPRESSION: 1. The appendix is surgically absent. 2. There is a bilobed collection identified in the right lower quadrant as detailed above. The more superior loculation contains foci of gas and a possible calcified appendicolith. This is concerning for developing abscess. 3. A separate small collection is identified in the left central pelvis. 4. The proximal small bowel loops are significantly distended. This gradually transitions to decompressed distal small bowel. No focal transition point is identified, and this may represent a postoperative ileus. A developing bowel obstruction could appear similar and clinical correlation/follow-up will be required. 5. There are thick-walled loops of small bowel in the right lower quadrant likely related to recent appendicitis/regional inflammation. 6. Trace pleural effusions. 7. Trace free fluid is seen in the pelvis. ACT 112: Negative or not required by law. Electronically signed by: Peter Harrison M.D. 10/20/2020 5:56 PM Blood Pressure Blood Pressure Findings: Elevated blood pressure Blood Pressure Disposition: elevated BP felt to be situational MDM Narrative Differential diagnosis: Ileus, bowel obstruction, infectious etiology such as abscess, among others were considered This patient is a pleasant 25-year-old male who presents ambulatory to the emergency department for evaluation of nausea, vomiting and mild abdominal pain in the setting of having an appendectomy. The patient was seen in the office where his drain was pulled. He was sent here for evaluation. On exam, he appears nauseated. He also appeared dry. His vital signs, however were stable. He had mild tenderness over the right side of the abdomen. Labs reveal leukocytosis. Surgery was consulted. They evaluated the patient. Due to his white count and nausea/discomfort, it was felt best to admit the patient for IV antibiotics and close monitoring. The patient and the patient's father were comfortable with this plan. He remained stable in the emergency department. Impression & Plan Vomiting, Abdominal pain Discharge Plan Visit Data Chief Complaint: Nausea Stated Complaint: APPENDECTOMY ON FRIDAY/NOT FEELING WELL ED Provider: Pito Villasenor ED Midlevel Provider: Sadaf Marks Discharge Problem: Vomiting, Abdominal pain Patient Disposition: Admitted As Inpatient Discharge Instructions Interventions: ED Discharge Assessment Last Done: 10/20/20 21:13 Forms Stand Alone Forms: [facility] [employer] Prescriptions Prescriptions: No Action ondansetron HCl [Zofran] 4 mg tablet 4 mg PO Q6H PRN (Reason: nausea and vomiting) Qty: 3 RF: 0 amoxicillin-pot clavulanate [Augmentin] 875-125 mg tablet 1 tab PO BID Qty: 10 RF: 0 Referrals Referrals: PCP,NO [Primary Care Provider] -
[2020-10-20 14:41] LABS: Basophils # (auto) 0.03 K/uL (0-0.2); Basophils % (auto) 0.2 %; Eosinophils % (auto) 0.6 %; Hematocrit (blood only) 44.6 % (42-52); Hemoglobin 15.8 g/dL (14.0-18.0); Immature Granulocytes % (auto) 1.2 %; Lymphocytes # (auto) 0.78 K/uL (1.2-3.4); Lymphocytes % (auto) 4.8 %; Mean Corpuscular Hemoglobin 30.7 pg (25-34); Mean Corpuscular Hgb Conc 35.4 g/dL (32-36); Mean Corpuscular Volume 86.6 fL (80-100); Mean Platelet Volume 9.8 fL (7.4-10.4); Monocytes # (auto) 1.39 K/uL (0.11-0.59); Monocytes % (auto) 8.5 %; Neutrophils # (auto) 13.78 K/uL (1.4-6.5); Neutrophils % (auto) 84.7 %; Platelet Count 371 K/uL (130-400); RDW Coefficient of Variation 12.8 % (11.5-14.5); RDW Standard Deviation 41.1 fL (36.4-46.3); Red Blood Count 5.15 M/uL (4.7-6.1); White Blood Count 16.28 K/uL (4.8-10.8)
[2020-10-20] MEDS ORDERED: PIPERACILLIN/TAZOBACTAM 4.5 GM/120 ML BAG IV ONE (14:50)
[2020-10-20] MEDS ORDERED: PIPERACILL/TAZOBAC CONSULT ACTIVE PRN ×2 (14:50→21:43)
[2020-10-20 14:51] LABS: INR 1.1 (0.9-1.1); Prothrombin Time 10.9 Seconds (9.0-12.0)
[2020-10-20 15:23] LABS: Albumin Level 2.6 gm/dl (3.4-5.0); BUN Creatinine Ratio 11.7 (10-20); Creatinine Clr Calc Pharmacy 143.6 ml/min; Est GFR (African American) 120.9; Est GFR (Non-African American) 104.4; Potassium 3.4 mmol/L (3.5-5.1)
[2020-10-20 15:25] LABS: Albumin Globulin Ratio 0.5 (0.9-2); Globulin 4.8 gm/dl (2.5-4.0); Total Protein 7.4 gm/dl (6.4-8.2)
[2020-10-20] MEDS ORDERED: OPTIRAY 320 100ml IV ONE (17:15)
--- NOTE | 2020-10-20 17:58 | CT Scan Report ---
CT SCAN OF THE ABDOMEN AND PELVIS WITH IV CONTRAST CLINICAL HISTORY: Nausea and vomiting several days status post appendectomy. COMPARISON STUDY: Abdominal CT dated 10/16/2020. TECHNIQUE: Following the IV administration of 94 cc of Optiray 320, CT scan of the abdomen and pelvi s is performed from the lung bases to the proximal femora. Images are reviewed in the axial, sagittal , and coronal planes. IV contrast was administered without complication. Oral contrast was utilized. A dose lowering technique was utilized adhering to the principles of ALARA. CT DOSE: 1418.48 mGy.cm FINDINGS: Lung bases: The heart is normal in size and without pericardial effusion. There are trace pleural eff usions with bibasilar atelectasis. Liver: The contrast-enhanced liver is normal in size, contour, and attenuation. There is no intrahepa tic biliary ductal dilatation. The hepatic veins and portal veins are patent. Gallbladder: Unremarkable. Spleen: Normal in size and attenuation. Pancreas: Unremarkable. Adrenal glands: Unremarkable. Kidneys: The contrast enhanced kidneys are normal in size and without hydronephrosis. The kidneys enh ance symmetrically. A retroaortic left renal vein is incidentally noted. Abdominal vasculature: The abdominal aorta is normal in course and caliber. Bowel: The proximal small bowel loops are distended and fluid-filled measuring up to 4.7 cm diameter. This gradually transitions to decompressed distal small bowel. A discrete transition point is not id entified. Mildly thick walled bowel loops are seen in the right lower quadrant, likely related to rec ent appendicitis/regional inflammation. The appendix is surgically absent. Peritoneum: There is trace free fluid in the pelvis. No intraperitoneal free air is identified. There is a multiloculated developing fluid collection identified in the right lower quadrant/pelvis seen o n images #348 and #397. The more superior loculation contains intraluminal gas and measures 3.0 x 4.7 x 2.7 cm, and the more inferior loculation measures 5.4 x 4.6 x 3.4 cm. A calcified appendicolith is suggested within the superior loculation on image #357. A separate small fluid collection the left c entral pelvis on image #374 measures 3.8 x 1.9 x 2.8 cm. There is a small fat-containing umbilical he rnia. Periumbilical soft tissue induration with small foci of subcutaneous cutaneous gas are likely r elated to recent surgery. Lymphadenopathy: None. Pelvic viscera: The bladder, prostate, and seminal vesicles are normal as visualized. Skeletal structures: No lytic or blastic lesions are seen. IMPRESSION: 1. The appendix is surgically absent. 2. There is a bilobed collection identified in the right lower quadrant as detailed above. The more s uperior loculation contains foci of gas and a possible calcified appendicolith. This is concerning fo r developing abscess. 3. A separate small collection is identified in the left central pelvis. 4. The proximal small bowel loops are significantly distended. This gradually transitions to decompre ssed distal small bowel. No focal transition point is identified, and this may represent a postoperat kira ileus. A developing bowel obstruction could appear similar and clinical correlation/follow-up crystal l be required. 5. There are thick-walled loops of small bowel in the right lower quadrant likely related to recent a ppendicitis/regional inflammation. 6. Trace pleural effusions. 7. Trace free fluid is seen in the pelvis. ACT 112: Negative or not required by law. Electronically signed by: Peter Harrison M.D. 10/20/2020 5:56 PM
[2020-10-20 18:44] LABS: Influenza A virus by PCR Negative (Neg); Influenza B virus by PCR Negative (Neg); RSV by PCR Negative (Neg); SARS CoV2 RNA(COVID-19) InHosp NEGATIVE (Negative)
[2020-10-20] MEDS ORDERED: IBUPROFEN 200 MG TAB PO PRN (21:43)
[2020-10-20] MEDS ORDERED: ACETAMINOPHEN 325 MG TAB PO PRN (21:43)
[2020-10-20] MEDS ORDERED: PROMETHAZINE HCL 12.5 MG in SODIUM CHLORIDE 0.9% 50 ML IV PRN (21:43)
[2020-10-20] MEDS ORDERED: ONDANSETRON INJ 2 MG/ML 2 ML VIAL IV PRN (21:43)
[2020-10-20] MEDS ORDERED: PIPERACILLIN/TAZOBACTAM 3.375 GM in DEXTROSE 5% 100 ML IV SCH (21:43)
[2020-10-20] MEDS: PIPERACILLIN/TAZOBACTAM 4.5 GM in DEXTROSE 5% 100 ML IV SCH (22:12)
[2020-10-21] MEDS: LACTATED RINGER'S 1,000 ML IV SCH ×2 (02:19→09:26)
[2020-10-21] MEDS: PIPERACILLIN/TAZOBACTAM 4.5 GM in DEXTROSE 5% 100 ML IV SCH ×3 (05:54→21:57)
[2020-10-21 06:15] LABS: Basophils # (auto) 0.03 K/uL (0-0.2); Basophils % (auto) 0.2 %; Eosinophils # (auto) 0.22 K/uL (0-0.5); Eosinophils % (auto) 1.6 %; Hematocrit (blood only) 39.1 % (42-52); Hemoglobin 13.9 g/dL (14.0-18.0); Immature Granulocytes # (auto) 0.18 K/uL (0.00-0.02); Immature Granulocytes % (auto) 1.3 %; Lymphocytes # (auto) 1.23 K/uL (1.2-3.4); Lymphocytes % (auto) 8.9 %; Mean Corpuscular Hemoglobin 30.5 pg (25-34); Mean Corpuscular Hgb Conc 35.5 g/dL (32-36); Mean Corpuscular Volume 85.9 fL (80-100); Mean Platelet Volume 9.8 fL (7.4-10.4); Monocytes # (auto) 1.34 K/uL (0.11-0.59); Monocytes % (auto) 9.7 %; Neutrophils # (auto) 10.76 K/uL (1.4-6.5); Neutrophils % (auto) 78.3 %; Platelet Count 369 K/uL (130-400); RDW Standard Deviation 41.1 fL (36.4-46.3); Red Blood Count 4.55 M/uL (4.7-6.1); White Blood Count 13.76 K/uL (4.8-10.8)
[2020-10-21 06:52] LABS: BUN Creatinine Ratio 11.5 (10-20); Calcium 8.6 mg/dl (8.5-10.1); Creatinine Clr Calc Pharmacy 151.2 ml/min; Est GFR (African American) 128.6; Potassium 3.3 mmol/L (3.5-5.1)
--- NOTE | 2020-10-21 08:37 | Surgery Progress Note ---
Date of Service October 21, 2020 Assessment & Plan (1) S/P laparoscopic appendectomy: Postoperative day #5 status post laparoscopic appendectomy for gangrenous appendicitis Bowel function not completely returned as yet Nausea has resolved Would continue ice chips for now Encouraged ambulation Continue intravenous antibiotics Admission and Anticipated Discharge Date Admission Date: October 20, 2020 Subjective Postoperative day #5 status post laparoscopic appendectomy for gangrenous appendicitis Patient feels much better today Has no nausea at the present time Still having diarrheal bowel movements Describes abdominal soreness in the right side but no sharp pain Still thinks he is mildly bloated Physical Exam Constitutional: no acute distress Gastrointestinal (Abdomen): Inspection/Auscultation: + abdomen distended (Mild), + abdominal surgical incision (All are clean, dry and intact) and + hypoactive bowel sounds Percussion/Palpation: + abdomen tender (Mild right lower quadrant) and abdomen soft Results & Data ([facility]) Vital Signs (Past 12 Hours) Vital Signs Temp Pulse Pulse Resp BP BP BP 10/21/20 07:41 37.4 C 94 H 16 125/80 10/20/20 23:19 36.4 C L 97 H 15 123/76 10/20/20 21:30 36.9 C 104 H 16 144/90 H 10/20/20 21:13 95 H 18 151/96 H 10/20/20 20:45 95 H 18 151/96 H Pulse Ox 10/21/20 07:41 95 10/20/20 23:19 95 10/20/20 21:30 94 10/20/20 21:13 95 10/20/20 20:45 95
[2020-10-21] MEDS: NSS + 20MEQ KCL 20 MEQ/1,000 ML BAG IV SCH ×2 (09:27→19:51)
[2020-10-22] MEDS: NSS + 20MEQ KCL 20 MEQ/1,000 ML BAG IV SCH ×3 (02:01→12:39)
[2020-10-22] MEDS: PIPERACILLIN/TAZOBACTAM 4.5 GM in DEXTROSE 5% 100 ML IV SCH ×3 (05:56→21:32)
[2020-10-22 05:59] LABS: Basophils # (auto) 0.03 K/uL (0-0.2); Basophils % (auto) 0.2 %; Eosinophils # (auto) 0.15 K/uL (0-0.5); Eosinophils % (auto) 1.1 %; Hematocrit (blood only) 37.1 % (42-52); Hemoglobin 13.1 g/dL (14.0-18.0); Immature Granulocytes # (auto) 0.24 K/uL (0.00-0.02); Immature Granulocytes % (auto) 1.8 %; Lymphocytes # (auto) 1.25 K/uL (1.2-3.4); Lymphocytes % (auto) 9.4 %; Mean Corpuscular Hemoglobin 30.8 pg (25-34); Mean Corpuscular Hgb Conc 35.3 g/dL (32-36); Mean Corpuscular Volume 87.1 fL (80-100); Mean Platelet Volume 9.2 fL (7.4-10.4); Monocytes # (auto) 1.15 K/uL (0.11-0.59); Monocytes % (auto) 8.7 %; Neutrophils # (auto) 10.47 K/uL (1.4-6.5); Neutrophils % (auto) 78.8 %; Platelet Count 361 K/uL (130-400); RDW Standard Deviation 41.8 fL (36.4-46.3); Red Blood Count 4.26 M/uL (4.7-6.1); White Blood Count 13.29 K/uL (4.8-10.8)
[2020-10-22 06:39] LABS: BUN Creatinine Ratio 11.8 (10-20); Calcium 8.3 mg/dl (8.5-10.1); Creatinine Clr Calc Pharmacy 151.3 ml/min; Est GFR (African American) 128.6; Potassium 3.9 mmol/L (3.5-5.1)
--- NOTE | 2020-10-22 10:20 | Surgery Progress Note ---
Date of Service October 22, 2020 Assessment & Plan (1) S/P laparoscopic appendectomy: Postoperative day #6 status post laparoscopic appendectomy Symptomatically improved Diarrhea continues question is function of resolving decreased bowel function versus antibiotics Would continue antibiotics based on CT findings White blood cell count decreased from admission but about the same as yesterday Would start sips of clear liquids today Admission and Anticipated Discharge Date Admission Date: October 20, 2020 Subjective Postoperative day #6 status post laparoscopic appendectomy Patient reports no nausea this morning but there is a small emesis recorded yesterday Having bowel movements about every 1 to 1.5 hours No hematochezia or melena Tolerating ice chips Physical Exam Gastrointestinal (Abdomen): Inspection/Auscultation: normal bowel sounds and + abdominal surgical incision (All are clean, dry and intact); abdomen not distended (Resolved) Percussion/Palpation: abdomen soft; abdomen nontender Results & Data ([facility]) Vital Signs (Past 12 Hours) Vital Signs Temp Pulse Resp BP BP Pulse Ox 10/22/20 07:21 36.4 C L 82 16 129/74 94 10/21/20 23:40 37.4 C 87 16 129/70 96 Laboratory Results 10/22/20 10/22/20 Range/Units 05:46 05:46 WBC 13.29 H (4.8-10.8) K/uL RBC 4.26 L (4.7-6.1) M/uL Hgb 13.1 L (14.0-18.0) g/dL Hct 37.1 L (42-52) % MCV 87.1 (80-100) fL MCH 30.8 (25-34) pg MCHC 35.3 (32-36) g/dL RDW Std Deviation 41.8 (36.4-46.3) fL RDW Coeff of Lenny 13.0 (11.5-14.5) % Plt Count 361 (130-400) K/uL MPV 9.2 (7.4-10.4) fL Immature Gran % (Auto) 1.8 % Neut % (Auto) 78.8 % Lymph % (Auto) 9.4 % [place] % (Auto) 8.7 % Eos % (Auto) 1.1 % Baso % (Auto) 0.2 % Neut # (Auto) 10.47 H (1.4-6.5) K/uL Lymph # (Auto) 1.25 (1.2-3.4) K/uL [place] # (Auto) 1.15 H (0.11-0.59) K/uL Eos # (Auto) 0.15 (0-0.5) K/uL Baso # (Auto) 0.03 (0-0.2) K/uL Immature Gran # (Auto) 0.24 H (0.00-0.02) K/uL Sodium 135 L (136-145) mmol/L Potassium 3.9 D (3.5-5.1) mmol/L Chloride 102 (98-107) mmol/L Carbon Dioxide 27 (21-32) mmol/L Anion Gap 6.0 (3-11) BUN 11 (7-18) mg/dl Creatinine 0.96 (0.6-1.4) mg/dl Est Cr Clr Drug Dosing 151.3 ml/min Est GFR ( Amer) 128.6 Est GFR (Non-Af Amer) 111.0 BUN/Creatinine Ratio 11.8 (10-20) Glucose 81 (70-99) mg/dl Calcium 8.3 L (8.5-10.1) mg/dl
[2020-10-23] MEDS: NSS + 20MEQ KCL 20 MEQ/1,000 ML BAG IV SCH ×4 (01:41→23:27)
[2020-10-23] MEDS: PIPERACILLIN/TAZOBACTAM 4.5 GM in DEXTROSE 5% 100 ML IV SCH ×3 (06:07→21:09)
[2020-10-23 06:31] LABS: Basophils # (auto) 0.03 K/uL (0-0.2); Basophils % (auto) 0.2 %; Eosinophils # (auto) 0.17 K/uL (0-0.5); Eosinophils % (auto) 1.3 %; Hematocrit (blood only) 39.7 % (42-52); Hemoglobin 13.9 g/dL (14.0-18.0); Immature Granulocytes % (auto) 3.1 %; Lymphocytes # (auto) 1.43 K/uL (1.2-3.4); Mean Corpuscular Hemoglobin 30.5 pg (25-34); Mean Corpuscular Volume 87.3 fL (80-100); Monocytes # (auto) 1.07 K/uL (0.11-0.59); Monocytes % (auto) 8.2 %; Neutrophils # (auto) 9.94 K/uL (1.4-6.5); Neutrophils % (auto) 76.2 %; Platelet Count 406 K/uL (130-400); RDW Coefficient of Variation 13.1 % (11.5-14.5); RDW Standard Deviation 42.2 fL (36.4-46.3); Red Blood Count 4.55 M/uL (4.7-6.1); White Blood Count 13.04 K/uL (4.8-10.8)
--- NOTE | 2020-10-23 07:08 | Surgery Progress Note ---
Date of Service October 23, 2020 Assessment & Plan (1) S/P laparoscopic appendectomy: POD #7 laparoscopic appendectomy with grossly necrotic appendix and with negative cultures of peritoneal fluid at the time of the surgery was kept on p.o. antibiotics CAT scan done approximately 5 days postop revealed what appeared to be a fluid collection in the pelvis with no air he had a drain that we had removed at that time which was draining serosanguineous fluid He is afebrile not tachycardic but his white count is still remained elevated with a left shift despite being on Zosyn Intraoperative cultures of peritoneal fluid was negative at the time of the surgery We will increase his diet today and will get infectious disease consult regarding antibiotic therapy consideration Admission and Anticipated Discharge Date Admission Date: October 20, 2020 Subjective Patient feels much better was able to tolerate a diet yesterday although was liquid his bowels are moving and decrease in frequency denies any abdominal pain Physical Exam Physical Exam: Is alert coherent comfortable The abdomen is completely benign there is a little blistering from tape burn around the umbilical area but the incision is healed well No pedal edema Results & Data ([facility]) Vital Signs (Past 12 Hours) Vital Signs Temp Pulse Resp BP Pulse Ox 10/22/20 23:18 37.4 C 79 16 123/76 96 PG Care Time/CCT Total # of Minutes Spent Total Time Spent with Patient: Total time spent is greater than 50% in coordination of care (as documented) at patient's floor/unit and/or counseling patient: Coding Level of Care Code None Diagnoses S/P laparoscopic appendectomy Z90.49
[2020-10-23 07:09] LABS: BUN Creatinine Ratio 4.8 (10-20); Calcium 8.4 mg/dl (8.5-10.1); Creatinine Clr Calc Pharmacy 156.1 ml/min; Est GFR (African American) 133.6; Est GFR (Non-African American) 115.3; Potassium 3.8 mmol/L (3.5-5.1)
[2020-10-24] MEDS: PIPERACILLIN/TAZOBACTAM 4.5 GM in DEXTROSE 5% 100 ML IV SCH (06:12)
[2020-10-24 07:41] LABS: Basophils # (auto) 0.02 K/uL (0-0.2); Basophils % (auto) 0.2 %; Eosinophils # (auto) 0.15 K/uL (0-0.5); Eosinophils % (auto) 1.3 %; Hematocrit (blood only) 37.6 % (42-52); Hemoglobin 13.2 g/dL (14.0-18.0); Immature Granulocytes # (auto) 0.21 K/uL (0.00-0.02); Immature Granulocytes % (auto) 1.9 %; Lymphocytes # (auto) 1.65 K/uL (1.2-3.4); Lymphocytes % (auto) 14.6 %; Mean Corpuscular Hemoglobin 30.8 pg (25-34); Mean Corpuscular Hgb Conc 35.1 g/dL (32-36); Mean Corpuscular Volume 87.6 fL (80-100); Mean Platelet Volume 9.5 fL (7.4-10.4); Monocytes # (auto) 0.83 K/uL (0.11-0.59); Monocytes % (auto) 7.4 %; Neutrophils # (auto) 8.42 K/uL (1.4-6.5); Neutrophils % (auto) 74.6 %; Platelet Count 430 K/uL (130-400); RDW Coefficient of Variation 13.2 % (11.5-14.5); RDW Standard Deviation 42.2 fL (36.4-46.3); Red Blood Count 4.29 M/uL (4.7-6.1); White Blood Count 11.28 K/uL (4.8-10.8)
--- NOTE | 2020-10-24 07:47 | Surgery Progress Note ---
Date of Service October 24, 2020 Assessment & Plan (1) S/P laparoscopic appendectomy: POD 8 afebrile labs pending continue IV abx, home when WBC improved Admission and Anticipated Discharge Date Admission Date: October 20, 2020 Subjective tolerating diet, feeling better, spoke with ID yesterday Physical Exam Gastrointestinal (Abdomen): Percussion/Palpation: abdomen soft; abdomen nontender Results & Data ([facility]) Vital Signs (Past 12 Hours) Vital Signs Temp Pulse Resp BP Pulse Ox 10/23/20 22:12 37.0 C 78 16 129/75 96 PG Care Time/CCT Total # of Minutes Spent Total Time Spent with Patient: Total time spent is greater than 50% in coordination of care (as documented) at patient's floor/unit and/or counseling patient: Coding Level of Care Code None Diagnoses S/P laparoscopic appendectomy Z90.49
--- NOTE | 2020-10-24 08:38 | Discharge Summary ---
Date of Service October 24, 2020 Admission HPI Per Admitting Provider This is a 25y M with no significant PMH who underwent a laparoscopic appendectomy on 10/16/[address] Weinberg who presents to the [facility] ED on 10/20/20 with complaints of nausea/vomiting. Intraop findings consistent with a gangrenous appendix with concerns of microperforation. Patient was discharged on POD#1 in stable condition with a FLOR drain in place and was prescribed a 5 day course of po abx. Patient reports since going home he has not had the best appetite and had an episode of nausea and vomiting on 10/18. He thinks it was related to the narcotic and has been on Tylenol since. Apparently he has also been dealing with sweats and chills and overall has not been feeling well. Today he was to follow up in clinic where he reported feeling mild improvement in his symptoms. His FLOR drain was removed without event. Unfortunately when patient returned home he drank a chocolate protein shake and subsequently vomited. He called the office and was instructed to come into the ER for further evaluation. In the ER patient noted to be tachycardic to the 110's. He did vomit while here. He denies any true fevers at home. He states he is passing small BM's, but not passing much gas. Principal Diagnosis Postoperative fluid collections s/p appendectomy Discharge Exam Constitutional WD/WN, vitals as above Gastrointestinal (Abdomen) Inspection/Auscultation: + abdominal surgical incision (dry) Percussion/Palpation: abdomen soft; abdomen nontender Discharge Data Allergies Allergy/AdvReac Type Severity Reaction Status Date / Time No Known Allergies AdvReac Unknown Unverified 10/20/20 14:55 Consultations 10/23/20 07:01 Consult Infectious Diseases Routine Ordered Studies 10/20/20 13:54 CT abd pelvis oral and IV con Stat Hospital Course (1) S/P laparoscopic appendectomy: 25 y/o male was seen in clinic 5 days s/p appendectomy for drain removal. He also had N/V and was referred to the ER for evaluation and admission. White count was 16,000 and he had several intra-abdominal fluid collections. He was admitted to the surgical service and started on IV Zosyn. His white count improved to 13,000 the next day but remained there for several days. Nate ID was consulted although he continued making clinical progress, was advancing diet and remained afebrile. By day four he was tolerating diet, was having formed BMs, and white count improved to 11. At that point he was stable for discharge home on oral antibiotics as recommended by ID. He will continue on Augmentin for another week, and will be seen in the clinic in 3 days. Total Time Total Time Spent Total Time Spent (In Minutes): 15 Discharge Plan Discharge Items Patient Disposition: Home - Self-Care Reason For Visit: NAUSEA/VOMITING S/P APPENDECTOMY Discharge Diagnosis: leukocytosis Activity: As commented below Lifting: No more than 25 pounds Bathing: No limitations Non-emergency contact: Surgeon Call non-emergency contact if: you have any medication questions, your symptoms worsen, your pain is not controlled, you have a fever, your temperature is above 101.5 and your wound has increased redness Follow-up/Referrals: Michel Weinberg MD, FACS [Surgeon] - 10/27/20 9:45 am (You have an appt Friday 10/27 at 9:45) PCP,NO [Primary Care Provider] - Diet: Regular Addtl Attending Provider Instructions: Pending Studies at Discharge: No Stand-Alone Forms: [employer], Smoking Cessation Medications and DC Order Prescriptions: New amoxicillin-pot clavulanate [Augmentin] 875-125 mg tablet 1 tab PO BID 5 Days Qty: 10 RF: 0 Continued ondansetron HCl [Zofran] 4 mg tablet 4 mg PO Q6H PRN (Reason: nausea and vomiting) Qty: 3 RF: 0 amoxicillin-pot clavulanate [Augmentin] 875-125 mg tablet 1 tab PO BID Qty: 10 RF: 0 Discharge Orders: Discharge Order (Routine); Ordered 10/24/20 Ordered By: Johnie Otoole Admission Data Admit Date/Time: 10/20/20 19:15 Attending Provider: Michel Weinberg Admit Provider: Michel Weinberg Primary Care Provider: PCP,NO Other Providers: Tobias Call ; Sarath Hopkins ; Kelby Ruby I. ; Zeus Whittington II ; Monalisa Will ; Velvet,Clinton A. Coding Level of Care Code D/C Day Management <30 mins Diagnoses S/P laparoscopic appendectomy Z90.49
== END 2020-10-24 10:34 | disposition home or self-care (01) | DRG 395 ==
LOC: ED 13:14 → 3N 19:15